=== PATIENT | female | born 1990 | race Two or more races ===

== ENCOUNTER 2021-02-07 12:34 | Emergency (ER) | payer OTHER ==
[2021-02-07] MEDS ORDERED: Ondansetron 4 MG Tab.DIS PO STA (13:35)
[2021-02-07] MEDS ORDERED: Meclizine 25 MG Tab PO STA (13:35)
--- NOTE | 2021-02-07 13:54 | EDM.PDOC ---
ED HPI GENERAL MEDICAL PROBLEM - General Chief Complaint: Headache Stated Complaint: VERTIGO Time Seen by Provider: 02/07/21 12:50 Source of Information: Reports: Patient History Limitations: Reports: No Limitations - History of Present Illness INITIAL COMMENTS - FREE TEXT/NARRATIVE: Patient presented to the ED because of a near syncopal episode today. @ days ago she started to feel dizzy which she described as spinning sensation. There is no tinnitus but c/o nausea whenever she turn her head due to the vertigo. There is no fever,chills,cough/cold symptoms. - Related Data Allergies Allergy/AdvReac Type Severity Reaction Status Date / Time No Known Allergies Allergy Verified 02/07/21 13:20 Home Meds: Home Meds Meclizine [Antivert] 25 mg PO Q6H PRN #15 tab 02/07/21 [Rx] Ondansetron [Zofran ODT] 4 mg PO Q4H PRN #5 tab.dis 02/07/21 [Rx] Past Medical History HEENT History: Reports: None Cardiovascular History: Reports: None Respiratory History: Reports: None Gastrointestinal History: Reports: None Genitourinary History: Reports: None Musculoskeletal History: Reports: None Neurological History: Reports: Vertigo, Other (See Below) Other Neuro History: HEADACHES Psychiatric History: Reports: Anxiety, Depression Endocrine/Metabolic History: Reports: None Hematologic History: Reports: None Immunologic History: Reports: None Oncologic (Cancer) History: Reports: None Dermatologic History: Reports: None - Past Surgical History HEENT Surgical History: Reports: None Cardiovascular Surgical History: Reports: None Respiratory Surgical History: Reports: None GI Surgical History: Reports: None Female Surgical History: Reports: Other (See Below) Other Female Surgeries/Procedures: LEEP PROCEDURE Endocrine Surgical History: Reports: None Neurological Surgical History: Reports: None Musculoskeletal Surgical History: Reports: None Oncologic Surgical History: Reports: Other (See Below) Other Oncologic Surgeries/Procedures: LEEP PROCEDURE Dermatological Surgical History: Reports: None Social & Family History - Tobacco Use Tobacco Use Status *Q: Current Every Day Tobacco User Years of Tobacco use: 12 Packs/Tins Daily: 1 - Caffeine Use Caffeine Use: Reports: Coffee, Soda - Recreational Drug Use Recreational Drug Use: No ED ROS GENERAL - Review of Systems Review Of Systems: See Below Constitutional: Reports: No Symptoms HEENT: Reports: No Symptoms Respiratory: Reports: No Symptoms Cardiovascular: Reports: No Symptoms Endocrine: Reports: No Symptoms GI/Abdominal: Reports: Nausea : Reports: No Symptoms Musculoskeletal: Reports: No Symptoms Skin: Reports: No Symptoms Neurological: Reports: Dizziness Psychiatric: Reports: No Symptoms Hematologic/Lymphatic: Reports: No Symptoms ED EXAM, GENERAL - Physical Exam Exam: See Below Exam Limited By: No Limitations General Appearance: Alert, No Apparent Distress Eye Exam: Bilateral Eye: PERRL Ears: Normal External Exam, Normal Canal Nose: Normal Inspection, Normal Mucosa, No Blood Throat/Mouth: Normal Inspection, Normal Lips, Normal Teeth, Normal Gums Head: Atraumatic, Normocephalic Neck: Normal Inspection, Supple, Non-Tender, Full Range of Motion Respiratory/Chest: No Respiratory Distress, Lungs Clear, Normal Breath Sounds, No Accessory Muscle Use, Chest Non-Tender Cardiovascular: Normal Peripheral Pulses, Regular Rate, Rhythm, No Edema, No Gallop, No JVD, No Murmur, No Rub Back Exam: Normal Inspection, Full Range of Motion Extremities: Normal Inspection, Normal Range of Motion, Non-Tender Neurological: Alert, Oriented, CN II-XII Intact Psychiatric: Normal Affect, Normal Mood Skin Exam: Warm, Dry, Intact, Normal Color, No Rash Course - Vital Signs Text/Narrative:: Lab/EKG result was reviewed and discussed with patient Zofran ODT 4 mg po x1 Meclizine 25 mg PO x1 Last Recorded V/S: Last Vital Signs Temp 36.9 C 02/07/21 12:45 Pulse 56 L 02/07/21 14:15 Resp 18 02/07/21 14:15 BP 117/65 02/07/21 14:15 Pulse Ox 100 02/07/21 14:15 - Orders/Labs/Meds Orders: Active Orders 24 hr Category Date Time Status EKG 12 Lead [EK] Routine Ther 02/07/21 12:55 Ordered Labs: Laboratory Tests 02/07/21 02/07/21 Range/Units 13:15 13:15 WBC 6.0 (3.0-10.3) x10-3/uL RBC 4.22 (3.60-5.20) x10(6)uL Hgb 13.7 (11.4-15.5) g/dL Hct 40.5 (34.2-48.2) % MCV 96.1 (76.7-100.5) fL MCH 32.5 (23.9-33.9) pg MCHC 33.8 (31.9-34.8) g/dL RDW 12.4 (12.3-16.5) % Plt Count 267 (151-488) x10(3)uL MPV 7.7 (7.1-12.4) fL Neut % (Auto) 50.8 (30.8-76.2) % Lymph % (Auto) 33.2 (18.4-52.1) % [place] % (Auto) 10.9 (4.4-15.7) % Eos % (Auto) 4.7 (0.6-8.1) % Baso % (Auto) 0.4 (0.2-1.5) % Neut # (Auto) 3.1 (1.5-6.3) x10-3/uL Lymph # (Auto) 2.0 (1.0-4.4) x10-3/uL [place] # (Auto) 0.7 (0.3-1.0) x10-3/uL Eos # (Auto) 0.3 (0.0-0.8) x10-3/uL Baso # (Auto) 0.0 (0.0-0.1) x10-3/uL Sodium 138 (135-145) mmol/L Potassium 4.1 (3.5-5.3) mmol/L Chloride 101 (100-110) mmol/L Carbon Dioxide 28 (21-32) mmol/L BUN 9 (7-18) mg/dL Creatinine 0.6 (0.55-1.02) mg/dL Est Cr Clr Drug Dosing 129.51 mL/min Estimated GFR (MDRD) > 60 (>60) BUN/Creatinine Ratio 15.0 (9-20) Glucose 89 (80-116) mg/dL Calcium 8.6 (8.6-10.2) mg/dL Meds: Medications Discontinued Medications Generic Name Dose Route Start Last Admin Trade Name Freq PRN Reason Stop Dose Admin Meclizine HCl 25 mg 02/07/21 13:35 02/07/21 13:42 Meclizine 25 Mg Tab PO 02/07/21 13:36 25 mg NOW STA Administration Ondansetron HCl 4 mg 02/07/21 13:35 02/07/21 13:42 Ondansetron 4 Mg Tab.Dis PO 02/07/21 13:36 4 mg NOW STA Administration Departure - Departure Time of Disposition: 13:50 Disposition: Home, Self-Care 01 Condition: Good Clinical Impression: Benign positional vertigo Prescriptions: Meclizine [Antivert] 25 mg PO Q6H PRN #15 tab PRN Reason: Dizziness Ondansetron [Zofran ODT] 4 mg PO Q4H PRN #5 tab.dis PRN Reason: Nausea Instructions: Benign Positional Vertigo Referrals: Jelly Pena, AN/SYQ 13 NAV/C2 OPERATOR [Primary Care Provider] - Forms: ED Department Discharge Additional Instructions: Please read discharge instructions on benign positional vertigo Increase oral Fluids Meclizine 25 mg every 6 hours for 2 days then take it as needed Zofran ODT 4 mg every 4 hours as needed for nausea Follow up as needed Sepsis Event Note (ED) - Evaluation Sepsis Screening Result: No Definite Risk - Focused Exam Vital Signs: Vital Signs Temp Pulse Resp BP Pulse Ox 02/07/21 14:15 56 L 18 117/65 100 02/07/21 12:45 36.9 C 58 L 16 127/64 100 - My Orders Last 24 Hours: My Active Orders 02/07/21 12:55 EKG 12 Lead [EK] Routine - Assessment/Plan Last 24 Hours: My Active Orders 02/07/21 12:55 EKG 12 Lead [EK] Routine
== END 2021-02-07 14:15 | disposition home or self-care (01) ==
LOC: FB.ED 12:34
DX: H81.10 Benign paroxysmal vertigo, unspecified ear (principal); Z72.0 Tobacco use
CPT/HCPCS: 36415; 80048; 85025; 93005; 99284; A9270; 99283